=== PATIENT | male | born 1995 | race Caucasian/White ===

== ENCOUNTER 2024-09-27 17:37 | Emergency (ER) | payer OTHER, SELFPAY ==
[2024-09-27 17:43] VITALS: BP 129/80; PULSE 62; RESP 20; TEMP 36.7; O2SAT 98; BMI 35.4
--- NOTE | 2024-09-27 18:03 | PC.NURSE ---
Pt arrived to ED today with [place] Ranger for SI. Pt states that he was walking around [employer] seeking answers and reading his bible. States that he has been under a significant amount of stress lately and he and his got into an argument tonight about their alice tree. Pt explained to COUNCILMAN and RN that the Lord talks to him often and he hears his voice and they often speak about anything and everything. Denies visualization lord. States that he has been hearing the lord speak to him since he was 5-6 years old. Pt reports that he has SI his entire life and multiple SI attempts and being very close to today. Pt denies having a specific plan but states that there are plenty of ways for him to kill himself. Pt a&ox4 and overall demeanor calm but tearful. Pt well groomed and cooperative. States I am wondering what is next and i feel like something big is coming. Feeling like I'm not fine. Pt has hx of inpatient psych admission while he was in the [employer] in [place]. States he is open to inpatient psych treatment at this time. Does not currently take any medications for mental health or past medical conditions.
[2024-09-27 18:24] LABS: Appearance Urine UA CLEAR; Bilirubin Urine UA NEGATIVE (NEGATIVE); Color Urine UA YELLOW; Glucose Urine UA NEGATIVE (Negative); Ketones Urine UA NEGATIVE (NEGATIVE); Leukocyte Esterase Urine UA NEGATIVE (NEGATIVE); Nitrite Urine UA NEGATIVE (Negative); Occult Blood Urine UA NEGATIVE (Negative); Protein Urine UA NEGATIVE (Negative); Specific Gravity Urine UA >=1.030 (1.000-1.035); Urobilinogen Urine UA 0.2 E.U./dL (0.2); pH Urine UA 5.5 (4.5-8.0)
[2024-09-27 18:29] LABS: Ur Creatinine Normal (Normal); Ur Specific Gravity Normal (Normal); Urine Amphetamines Negative (Negative); Urine Cocaine Negative (Negative); Urine MDMA Negative (Negative); Urine Methamphetamines Negative (Negative); Urine Opiates Negative (Negative); Urine Phencyclidine Negative (Negative); Urine THC Positive (Negative); Urine pH Normal (Normal)
[2024-09-27 18:30] LABS: Urine Barbiturates Negative (Negative); Urine Benzodiazepines Negative (Negative); Urine Methadone Negative (Negative); Urine Oxycodone Negative (Negative); Urine Tricyclic Antidepressant Negative (Negative)
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
[2024-09-27 18:48] LABS: Add Manual Diff / Slide Review NO; Basophils Absolute Auto 0 /uL (0-100); Basophils Percent Auto 0.3 % (0-2); Eosinophils Absolute Auto 300 /uL (0-450); Eosinophils Percent Auto 4.3 % (2-4); Hematocrit 45.9 % (41-53); Hemoglobin 15.5 g/dL (13.5-17.5); Lymphocytes Absolute Auto 2200 /uL (1100-4500); Lymphocytes Percent Auto 30.3 % (25-40); Mean Corpuscular HGB Conc 33.8 % (30-36); Mean Corpuscular Hemoglobin 27.5 PG (26-34); Mean Corpuscular Volume 81.2 fL (80-100); Monocytes Absolute Auto 500 /uL (0-900); Monocytes Percent Auto 6.8 % (3-14); Neutrophils Absolute Auto 4200 /uL (1500-7000); Neutrophils Percent Auto 58.3 % (50-75); Platelet Count 195 X10^3/uL (150-400); Red Blood Cell Count 5.65 X10^6/uL (4.5-5.9); Red Cell Distribution Width 13.8 % (11.6-14.8); White Blood Cell Count 7.2 X10^3/uL (4.5-11.0)
[2024-09-27 18:53] LABS: COVID19 -Nasal RAPID Negative (Negative)
--- NOTE | 2024-09-27 18:53 | ED_ITS ---
HPI - Psych General Chief Complaint: Psychiatric Symptoms Stated Complaint: mental health LEONA delarosa Time Seen by Provider: 09/27/24 18:02 Source: patient and police Mode of arrival: Ambulatory History of Present Illness HPI Narrative: Patient was a 29-year-old male. Brought in by park rangers for evaluation of suicidal ideation. He was found wandering around a section past park. Reading his Bible. Patient states he had an argument with his earlier today. He stated that he called his mother and told her to take care of his kids. He left the house. Patient has had constant suicidal ideation for his entire life. He states today is worse than normal because of the argument that he had with his . He denies any alcohol or drug abuse. He states he was seen a mental health provider years ago. Has a diagnosis of depression. He states that the counseling did not help any of his symptoms. He was not on any current medications. He was very focused on religious. States that God does talk to him. And today he was seeking answers. he denies any visual hallucinations. He states he was trying to hurt himself many times in the past. States that it would be very easy to do so. He states he came very close today to trying to kill himself. Review of Systems Review of Systems Narrative: See HPI Patient History Social History Smoking Status: Current every day smoker Smoking Status: Current every day smoker tobacco type: cigarettes alcohol intake frequency: 0-2 drinks per day Substance Use Type: marijuana Exam Initial Vital Signs Initial Vital Signs: Vital Signs Temperature 98.1 F 09/27/24 17:43 Pulse Rate 62 09/27/24 17:43 Respiratory Rate 20 09/27/24 17:43 Blood Pressure 129/80 09/27/24 17:43 Pulse Oximetry 98 09/27/24 17:43 Oxygen Delivery Method Room Air 09/27/24 17:43 Const General: cooperative, comfortable and No ill appearing HENMT Head: normal to inspection Resp Effort & Inspection: normal respiratory effort Cardio Rate: regular rate GI Inspection: non-distended Neuro General: patient alert, patient awake, patient oriented x3 and moves all extremities Psych Appearance: grossly normal and well kempt Speech and Movement: speech and movement normal Mood: congruent mood Thought Content: hallucinations auditory; not visual, no homicidality and suicidality Scores GCS [place] coma scale eye opening: Spontaneous [place] coma scale verbal response: Orientated Kathleen coma scale motor response: Obey commands Kathleen coma scale total score: 15 Course Orders Ordered: ED Orders 09/27/24 17:47 Urinalysis and Microscopic Stat Urine Drug Screen, Rapid Stat 09/27/24 17:57 COVID19 -Nasal RAPID Stat 09/27/24 18:00 Consult to ONYX CHIP TERRAZZO WORKER - Metal Fence Erector Stat 09/27/24 18:07 EKG-12 Lead Stat 09/27/24 18:35 Complete Blood Count AUTO DIFF Stat Comprehensive Metabolic Panel Stat Ethanol (ETOH) Stat TSH w/ Reflex to FT4 Stat Vital Signs Vital signs: Vital Signs - 8 hr 09/27/24 17:43 Temperature 98.1 F Pulse Rate 62 Respiratory Rate 20 Blood Pressure 129/80 Pulse Oximetry 98 Oxygen Delivery Method Room Air MDM - Psych Lab Data Attestation: I reviewed the patient's lab results. 09/27/24 18:35 09/27/24 18:35 Labs: Lab Results 09/27/24 09/27/24 09/27/24 Range/Units 17:47 17:47 17:57 WBC (4.5-11.0) X10^3/uL RBC (4.5-5.9) X10^6/uL Hgb (13.5-17.5) g/dL Hct (41-53) % MCV (80-100) fL MCH (26-34) PG MCHC (30-36) % RDW (11.6-14.8) % Plt Count (150-400) X10^3/uL Neut % (Auto) (50-75) % Lymph % (Auto) (25-40) % [place] % (Auto) (3-14) % Eos % (Auto) (2-4) % Baso % (Auto) (0-2) % Neut # (Auto) (3249-3926) /uL Lymph # (Auto) (0610-7694) /uL [place] # (Auto) (0-900) /uL Eos # (Auto) (0-450) /uL Baso # (Auto) (0-100) /uL Sodium (137-145) mmol/L Potassium (3.4-5.1) mmol/L Chloride (98-107) mmol/L Carbon Dioxide (22-32) mmol/L BUN (9-20) mg/dL Creatinine (0.66-1.25) mg/dL Estimated GFR (>60) mL/min BUN/Creatinine Ratio (6-22) Glucose (70-100) mg/dL Calcium (8.4-10.2) mg/dL Total Bilirubin (0.2-1.3) mg/dL AST (17-59) IU/L ALT (<50) IU/L Alkaline Phosphatase (38-126) U/L Total Protein (6.3-8.2) g/dL Albumin (3.5-5.0) g/dL Globulin (1.7-4.1) g/dL Albumin/Globulin Ratio (1.0-2.8) TSH (0.47-4.68) uIU/mL Urine Color Yellow Urine Appearance Clear Urine pH 5.5 Normal (4.5-8.0) Ur Specific [place] >=1.030 H (1.000-1.035) Urine Protein Negative (Negative) Urine Glucose (UA) Negative (Negative) g/dL Urine Ketones Negative (NEGATIVE) Urine Occult Blood Negative (Negative) Urine Nitrate Negative (Negative) Urine Bilirubin Negative (NEGATIVE) Urine Urobilinogen 0.2 (0.2) E.U./dL Ur Leukocyte Esterase Negative (NEGATIVE) Urine RBC None seen (0-5/HPF) Urine WBC None seen (0-5/HPF) Ur Squamous Epith Cells None seen (0-5/HPF) Urine Bacteria Few (2-10) H (None) Urine Mucus 3+ H (Negative) Urine Sperm Not Reportable Ur Culture Indicated? Cult not indicated Vol Urine Centrifuged 10ml (spun) U Opiates 300ng/mL cut Negative (Negative) Ur Oxycodone Screen Negative (Negative) Urine Methadone Screen Negative (Negative) Ur Barbiturates Screen Negative (Negative) U Tricyclic Antidepress Negative (Negative) Ur Phencyclidine Scrn Negative (Negative) Ur Amphetamines Screen Negative (Negative) U Methamphetamines Scrn Negative (Negative) Ur MDMA Scrn (Ecstasy) Negative (Negative) U Benzodiazepines Scrn Negative (Negative) Urine Cocaine Screen Negative (Negative) U Marijuana (THC) Screen Positive H (Negative) Urine Specific [place] Normal (Normal) Ethyl Alcohol ( - 10) mg/dL Ur Creatinine Normal (Normal) SARS-CoV-2 (PCR) Negative (Negative) 09/27/24 Range/Units 18:35 WBC 7.2 (4.5-11.0) X10^3/uL RBC 5.65 (4.5-5.9) X10^6/uL Hgb 15.5 (13.5-17.5) g/dL Hct 45.9 (41-53) % MCV 81.2 (80-100) fL MCH 27.5 (26-34) PG MCHC 33.8 (30-36) % RDW 13.8 (11.6-14.8) % Plt Count 195 (150-400) X10^3/uL Neut % (Auto) 58.3 (50-75) % Lymph % (Auto) 30.3 (25-40) % [place] % (Auto) 6.8 (3-14) % Eos % (Auto) 4.3 H (2-4) % Baso % (Auto) 0.3 (0-2) % Neut # (Auto) 4200 (9719-3792) /uL Lymph # (Auto) 2200 (2315-2504) /uL [place] # (Auto) 500 (0-900) /uL Eos # (Auto) 300 (0-450) /uL Baso # (Auto) 0 (0-100) /uL Sodium 139 (137-145) mmol/L Potassium 4.3 (3.4-5.1) mmol/L Chloride 109 H (98-107) mmol/L Carbon Dioxide 24 (22-32) mmol/L BUN 14 (9-20) mg/dL Creatinine 1.08 (0.66-1.25) mg/dL Estimated GFR > 60 (>60) mL/min BUN/Creatinine Ratio 13.0 (6-22) Glucose 97 (70-100) mg/dL Calcium 9.2 (8.4-10.2) mg/dL Total Bilirubin 0.6 (0.2-1.3) mg/dL AST 32 (17-59) IU/L ALT 31 (<50) IU/L Alkaline Phosphatase 76 (38-126) U/L Total Protein 7.6 (6.3-8.2) g/dL Albumin 4.9 (3.5-5.0) g/dL Globulin 2.7 (1.7-4.1) g/dL Albumin/Globulin Ratio 1.8 (1.0-2.8) TSH 0.82 (0.47-4.68) uIU/mL Urine Color Urine Appearance Urine pH (4.5-8.0) Ur Specific [place] (1.000-1.035) Urine Protein (Negative) Urine Glucose (UA) (Negative) g/dL Urine Ketones (NEGATIVE) Urine Occult Blood (Negative) Urine Nitrate (Negative) Urine Bilirubin (NEGATIVE) Urine Urobilinogen (0.2) E.U./dL Ur Leukocyte Esterase (NEGATIVE) Urine RBC (0-5/HPF) Urine WBC (0-5/HPF) Ur Squamous Epith Cells (0-5/HPF) Urine Bacteria (None) Urine Mucus (Negative) Urine Sperm Ur Culture Indicated? Vol Urine Centrifuged U Opiates 300ng/mL cut (Negative) Ur Oxycodone Screen (Negative) Urine Methadone Screen (Negative) Ur Barbiturates Screen (Negative) U Tricyclic Antidepress (Negative) Ur Phencyclidine Scrn (Negative) Ur Amphetamines Screen (Negative) U Methamphetamines Scrn (Negative) Ur MDMA Scrn (Ecstasy) (Negative) U Benzodiazepines Scrn (Negative) Urine Cocaine Screen (Negative) U Marijuana (THC) Screen (Negative) Urine Specific [place] (Normal) Ethyl Alcohol < 10 ( - 10) mg/dL Ur Creatinine (Normal) SARS-CoV-2 (PCR) (Negative) MDM Narrative Medical decision making narrative: patient was medically cleared. He was alert and oriented x3. Not clinically intoxicated. Brought in by parking analyst. He was voluntary. Has been seen by social work. Will attempt to find placement. Patient has been [facility] crisis [facility]. He remains voluntary. Patient Remains stable for transport. Discharge Plan Departure Patient Disposition: Xfer Psychiatric Hosp Clinical Impression: Suicidal ideation Referrals: Miscellaneous,DoctorMD [Primary Care Provider] -
[2024-09-27 18:55] LABS: Bacteria Urine Few (2-10); RBC Urine None Seen (0-5/HPF); Squamous Epithelial Cell Urine None Seen (0-5/HPF); Urine Volume 10mL (spun); WBC Urine None Seen (0-5/HPF)
[2024-09-27 18:57] LABS: Culture Indicated Urine Cult Not Indicated; Mucus Urine 3+ (Negative)
[2024-09-27 19:02] LABS: Alanine Aminotransferase 31 IU/L (<50); Albumin 4.9 g/dL (3.5-5.0); Albumin Globulin Ratio 1.8 (1.0-2.8); Alkaline Phosphatase 76 U/L (38-126); Aspartate Aminotransferase 32 IU/L (17-59); Bilirubin Total 0.6 mg/dL (0.2-1.3); Blood Urea Nitrogen 14 mg/dL (9-20); Calcium 9.2 mg/dL (8.4-10.2); Carbon Dioxide 24 mmol/L (22-32); Chloride 109 mmol/L (98-107); Estimated Glomerular Filt Rate > 60 mL/min (>60); Ethanol (ETOH) < 10 mg/dL; Globulin 2.7 g/dL (1.7-4.1); Glucose 97 mg/dL (70-100); HEMOLYSIS < 15 (0-50); Potassium 4.3 mmol/L (3.4-5.1); Sodium 139 mmol/L (137-145); Total Protein 7.6 g/dL (6.3-8.2)
--- NOTE | 2024-09-27 19:24 | CM.SWNOTE ---
ED NUCLEAR STATION OPERATOR Note Patient's spouse calls ED, NUCLEAR STATION OPERATOR answers phone. Patient gives consent for ED to speak with spouse. Spouse requests updates regarding patient's care plan and where he transfers to. She reports that she is unsure if she will be able to visit patient due to caring for their 1 y/o. NUCLEAR STATION OPERATOR calls [facility], it is reported that they have beds, NUCLEAR STATION OPERATOR faxes clinicals for review. NUCLEAR STATION OPERATOR calls [facility], it is reported that they have beds, NUCLEAR STATION OPERATOR faxes clinicals for review. ED team to continue to coordinate transfer to inpatient hospital. ABAD Mix
[2024-09-27 19:38] LABS: TSH w/ Reflex to FT4 0.82 uIU/mL (0.47-4.68)
--- NOTE | 2024-09-27 21:09 | PC.NURSE ---
Addendum entered by Aniyah Morales CNA 09/27/24 21:22: 2120: [facility] Crisis Triage nurse Priyanka to call back soon Original Note: anita brar and [facility] reviewing as of [address] [facility] called back at 2100 and said that the provider accepted but wanted to talk with the pt about going to Crisis Triage instead. pt on the phone with them now.
[2024-09-27 22:59] VITALS: PULSE 79; RESP 18; TEMP 36.2; O2SAT 97
== END 2024-09-27 23:41 ==
PROVIDERS: Emergency Provider Emergency Medicine
DX: R45.851 Suicidal ideations (principal); Z11.52 Encounter for screening for COVID-19
CPT/HCPCS: 80053; 80305; 80320; 81001; 84443; 85025; 87635; 99284